=== PATIENT | male | born 1955 | race Caucasian/White ===

== ENCOUNTER → 2017-05-20 | Outpatient (CLI) | payer BC ==
[~2017-05-20] VITALS: Ht 177.8 cm; Wt 111.8 kg
[~2017-05-20] MED LIST: 00186-0370-20 IH; ASPIRIN 81M81 MG/TA2 PO; COMBIRESP IH; COZAAR 50MG50 MG/TAB PO; CUTIVATE0.05% TP; FLONASE NASAL S16 GM NS; FLONASEALLERGY NS; FORT1000TA PO; GLUCOPHAGE XR500 M1 PO; HCTZ12.5TAB PO; INCRUSE EL62.5 MCG/A IH; IPRATROPIUM BROM3 M1 IH; JANUVIA 100MG100 MG PO; JANUVIA25 MG PO; LEVAQUIN 5500 MG/TA1 PO; LEVAQUIN 750MG750 M1 PO; LIPITOR 10MG10 MG PO; LIPITOR20 MG PO; LOPRESSOR 550 MG/TAB PO; NORVASC 5MG5 MG/TAB PO; PREDNISONE10 MG PO; PREDNISONE20 MG PO; PROVENTIL0.09 MG/A1 IH; RT ADVAIR 228 DISKUS IH; RT SPIRIVA18 MCG IH; TOPROL XL100 MG PO; ZESTRIL40 MG PO; ZYLOPRIM 300MG300 MG PO
[2017-05-20 11:21] VITALS: BP 151/94; PULSE 64
[2017-05-20 13:00] VITALS: BP 155/83; PULSE 73
== END ==
LOC: COL.RAD 10:52
DX: R22.42 Localized swelling, mass and lump, left lower limb (principal); I10 Essential (primary) hypertension; M79.89 Other specified soft tissue disorders

== ENCOUNTER 2021-08-24 11:02 | Day surgery (SDC) | payer MEDICARE, BC ==
[~2021-08-24] VITALS: Ht 177.8 cm; Wt 94.3 kg
[2021-08-24] MEDS ORDERED: ONE-A-DAY ESSE1 EACH PO (12:57)
[2021-08-24] MEDS ORDERED: VITAMIN C500 MG PO (13:02)
[2021-08-24 13:39] VITALS: BP 131/89; PULSE 59; TEMP 97.7
[2021-08-24 15:05] VITALS: BP 133/83; PULSE 63; TEMP 97.6
--- NOTE | 2021-08-24 15:12 | NUR ---
Patient arrived on cart from [facility] suite, drowsy but oriented. Patient ambulated from cart to recliner without difficulty, using a steady gait. Report obtained from [facility]. Vital signs obtained and are stable. Patient requested ice water and is tolerating it well. Will continue to monitor.
[2021-08-24 15:20] VITALS: BP 129/81; PULSE 62
--- NOTE | 2021-08-24 15:20 | NUR ---
Patient requested jello and ice water. He is tolerating it very well and states that said they could leave at 1630 if his post-procedure recovery goes well. Vitals obtained. Will continue to monitor.
[2021-08-24 15:35] VITALS: BP 133/83; PULSE 65
--- NOTE | 2021-08-24 15:35 | NUR ---
Patient is upright in the recliner, alert and oriented x3. Vitals obtained. Call pedraza is within reach. Will continue to monitor.
[2021-08-24 15:50] VITALS: BP 131/89; PULSE 58
--- NOTE | 2021-08-24 15:50 | NUR ---
Patient requested another strawberry jello and states he is very hungry. RN educated patient on the importance of a clear liquid diet while here at the hospital. Patient verbalized understanding. Vitals obtained. Will continue to monitor. Call pedraza is within reach.
[2021-08-24 16:20] VITALS: BP 130/77; PULSE 60
--- NOTE | 2021-08-24 16:23 | NUR ---
Patient ambulated to bathroom without difficulty to void. IV discontinued at this time due to discharge soon. Vitals obtained. Patient requested discharge
--- NOTE | 2021-08-24 16:40 | NUR ---
Patient was escorted out via wheelchair to [facility] by [facility] Cm. Patient has his belongings and discharge information. His is present and driving. Patient was transferred into her care.
== END 2021-08-24 16:40 | disposition home or self-care (01) ==
LOC: SDCO 11:02
DX: C24.1 Malignant neoplasm of ampulla of Vater (principal); C24.0 Malignant neoplasm of extrahepatic bile duct; K26.7 Chronic duodenal ulcer without hemorrhage or perforation; K31.89 Other diseases of stomach and duodenum; K83.8 Other specified diseases of biliary tract; E11.9 Type 2 diabetes mellitus without complications; K83.1 Obstruction of bile duct; R63.4 Abnormal weight loss; I10 Essential (primary) hypertension; J44.9 Chronic obstructive pulmonary disease, unspecified; G47.33 Obstructive sleep apnea (adult) (pediatric); J84.10 Pulmonary fibrosis, unspecified; M10.9 Gout, unspecified; F17.210 Nicotine dependence, cigarettes, uncomplicated; Z20.822 Contact with and (suspected) exposure to COVID-19; Z79.84 Long term (current) use of oral hypoglycemic drugs; Z79.899 Other long term (current) drug therapy; E78.5 Hyperlipidemia, unspecified; Z83.3 Family history of diabetes mellitus
CPT/HCPCS: C1769; C2625; J2704; J3010; J7030; Q9967